=== PATIENT | male | born 1980 | race Caucasian/White ===

== ENCOUNTER 2025-01-20 08:27 | Emergency (ER) | payer SELFPAY ==
[2025-01-20 08:34] VITALS: BP 146/96; PULSE 90; RESP 20; TEMP 36.8; O2SAT 96; BMI 33.0
[2025-01-20 08:45] VITALS: BP 138/97; PULSE 90; O2SAT 97
[2025-01-20] MEDS: LACTATED RINGERS 1000ML 1,000 ML 999 ML IV (08:58)
[2025-01-20 09:00] VITALS: BP 125/86; PULSE 86; RESP 17; O2SAT 95
[2025-01-20 09:00] LABS: Hematocrit 44.1 % (42.0-52.0); Hemoglobin 15.2 g/dL (14.1-18.0); Immature Granulocytes % 0.6 %; Mean Corpuscular HGB Conc 34.5 g/dL (31.8-35.4); Mean Corpuscular Hemoglobin 30.5 pg (27.0-31.2); Mean Corpuscular Volume 88.6 fl (80-94); Nucleated Red Blood Cells % 0 %; Platelet Count 243 K/mm3 (142-424); Red Blood Count 4.98 M/mm3 (4.60-6.20); Red Cell Distribution Width-SD 41.0 fL; White Blood Count 8.3 K/mm3 (4.8-10.8)
[2025-01-20 09:05] LABS: Albumin Level 4.6 g/dl (3.5-5.0); Chloride 98 mmol/L (98-107)
[2025-01-20 09:06] LABS: Potassium 3.7 mmoL/L (3.5-5.1); Sodium 138 mmol/L (136-145)
[2025-01-20 09:08] LABS: Alanine Aminotransferase 64 U/L (12-78); Albumin/Globulin Ratio 1.8 (1.1-1.8); Alkaline Phosphatase 44 U/L (38-126); Anion Gap 14.7 mEq/L (5-15); Aspartate Amino Transferase 45 U/L (17-59); Bilirubin,Total 0.4 mg/dl (0.2-1.3); Blood Urea Nitrogen 10 mg/dl (9-20); Carbon Dioxide 29 mmol/L (22.0-30.0); Creatinine Clearance Estimated 158 mL/min (50-200); Creatinine,Serum 0.90 mg/dl (0.66-1.25); Estimated Glomerular Filt Rate 93 ml/min (>60); GFR (African American) 112 ML/MIN (>60); Globulin 2.5 g/dL (1.3-3.2); Lipase 132 U/L (23-300); Total Protein,Serum 7.1 g/dl (6.3-8.2)
[2025-01-20 09:09] LABS: Calcium 8.8 mg/dl (8.4-10.2); Glucose 108 mg/dl (74-100); Magnesium 1.8 mg/dl (1.6-2.3)
[2025-01-20 09:15] VITALS: BP 127/82; PULSE 87; RESP 19; O2SAT 95
--- NOTE | 2025-01-20 09:21 | ED_ITS ---
Discharge Plan Disposition Patient Disposition: Home, Self-Care Condition: Good Prescriptions Prescriptions: New ondansetron 4 mg tablet,disintegrating 4 mg PO Q8H PRN (Reason: nausea and vomiting) 4 Days Qty: 12 1RF tinidazole 500 mg tablet 2 g PO ONCE Qty: 4 0RF Referrals Follow up/Referrals: Abraham Velazquez II, MD [Staff Physician, Gastroenterology] - See instructions Lisandro Oneal MD [Primary Care Provider, Medical] - See instructions Activity Restrictions/Add. Instructions Additional Instructions/Restrictions: You were evaluated in the emergency department today. Your labs today are reassuring. Your stool panel is pending. I will follow-up and let you know once the results come back. Please last picker your prescription for Zofran and take as needed. Eat a bland diet and make sure you stay hydrated. Return to the emergency department right away for new or worsening symptoms such as high fevers, localizable abdominal pain, or other concerns. Please follow-up closely with your primary care provider. I also recommend follow-up with allergy/immunology given your symptoms. Clinical Impressions Clinical Impression: Nausea, vomiting and diarrhea Stand Alone Forms Stand Alone Forms: Work/School Release Instructions Patient Instructions: DI for Diarrhea and Traveler's Diarrhea -- Adult, DI for Acute Abdominal Pain, DI for Nausea -- Adult, DI for Vomiting -- Adult Print Language Print Language: Turkish Discharge ED Provider: Anna Escobedo General Adult HPI General Chief complaint: Abdominal Pain Stated complaint: Possible Gallbladder Time Seen by Provider: 01/20/25 08:38 Mode of Arrival: Ambulatory Source of Information: Patient Description of Symptoms (Recalled from ER Triage Doc. by RN): pt is here for generalized abd spasms that have been going on for awhile however early this morning he had worsening pain as well as n/v/d. has hx of hiatal hernia and gerd and takes daily pepcid 40 mg History of Present Illness HPI narrative: This patient is a 44-year-old male presenting to the emergency department for evaluation with concern for nausea, vomiting, diarrhea, and abdominal cramping. Patient initially started having diarrhea about 2 weeks ago with nonbloody nonmelanotic stools. He notes he is also had some issues with indigestion and pressure in his upper abdomen as well as generalized abdominal cramps. Last night around 2:00 in the morning, he started having nausea and vomiting. He notes that he had drank red Gatorade so the emesis was red. Aside from having the generalized abdominal cramping that feels like muscle spasms in his whole abdomen, he does not have any specific localizable pain. No fevers, chills, or urinary symptoms noted. He states that he was concerned that he could have alpha gal syndrome and that this could have been triggered by eating butter last night and previously by eating meat. He has never been tested or diagnosed with any alpha gal syndrome or tickborne diseases, but about a month ago he did found 3 ticks on himself [place]. He denies any other symptoms such as joint pains, body aches, rashes, tongue or throat swelling/tingling, difficulty breathing, or other concerns, but he thought that symptoms could have been minimized by the allergy medications that he is on for his chronic history of asthma. Otherwise, his only known allergy/intolerance is to corn, but he states he has not had corn in several days. He states usually he can tolerate corn with his allergy medications on board as long as it is cooked. No other new medications, travels, or recent exposures. No known sick contacts. Of note, he does have a history of hiatal hernia as well as bilateral inguinal hernia repair Related Data Previous Rx's ?Medication ?Instructions ?Recorded ondansetron 4 mg disintegrating 4 mg PO Q8H PRN nausea and 01/20/25 tablet vomiting 4 days #12 tabs tinidazole 500 mg tablet 2 g (4 x 500 mg) PO ONCE #4 tabs 01/20/25 Allergies Allergy/AdvReac Type Severity Reaction Status Date / Time corn Allergy Other Verified 01/20/25 08:50 [facility] Disclaimer: The information contained in this section may have been updated after the patient was seen, as this information can be updated by other users. Social History Smoking Status: Never smoker alcohol intake: never current occupational status: employed Travel in the last 8 weeks?: None ROS Obtained: Yes All systems reviewed & no additional complaints except as documented Physical Exam General General appearance: alert and in no apparent distress Head Head exam: atraumatic and normocephalic Eye Eye exam: Present normal appearance, PERRL and EOMI ENT ENT exam: Present normal exam, normal oropharynx, mucous membranes moist and normal external ear exam Neck Neck exam: Present normal inspection, full ROM and trachea midline; Absent tenderness Chest Chest inspection: Present normal inspection and symmetric chest wall rise; Absent tenderness Respiratory Respiratory exam: Present normal lung sounds bilaterally; Absent respiratory distress, wheezes, stridor or accessory muscle use Cardiovascular Cardiovascular exam: Present regular rate and normal rhythm Abdominal Exam Abdominal exam: Present soft; Absent distention, tenderness or guarding Extremities Exam Extremities exam: Present normal inspection, full ROM and normal capillary refill; Absent tenderness or edema Back Exam Back exam: Present normal inspection and full ROM; Absent tenderness Neurological Exam Neurological exam: Present alert, oriented X3, CN II-XII intact and normal gait; Absent motor sensory deficit Psychiatric Psychiatric exam: Present normal affect and normal mood Skin Skin exam: Present warm and dry Medical Decision Making Medical Records Medical records reviewed: Yes I reviewed the patient's medical records. Screening: Per USPSTF and CDC recommendations, given the prevalence of disease in our region, it is our hospital?s policy to screen for HIV and viral Hepatitis for all patients aged 18 and over and those with ongoing risk factors. Casimiro Inquiry Pt receiving controlled substance: No Vital Signs: 01/20/25 08:34 01/20/25 08:45 01/20/25 09:00 Temperature 98.2 F Temperature Source Oral Pulse Rate 90 86 Pulse Rate [Left Radial] 90 Respiratory Rate 20 17 Blood Pressure 138/97 H 125/86 Blood Pressure [Right Arm] 146/96 H Blood Pressure Mean 112 99 Blood Pressure Mean [Right Arm] 112 Blood Pressure Source Blood Pressure Position 02 Sat by Pulse Oximetry 96 97 95 Oxygen Delivery Method Room Air Room Air Room Air 01/20/25 09:15 01/20/25 09:30 01/20/25 10:10 Temperature 98.7 F Temperature Source Oral Pulse Rate 87 88 79 Pulse Rate [Left Radial] Respiratory Rate 19 19 19 Blood Pressure 127/82 126/81 125/79 Blood Pressure [Right Arm] Blood Pressure Mean 91 90 Blood Pressure Mean [Right Arm] Blood Pressure Source Automatic Cuff Blood Pressure Position Supine 02 Sat by Pulse Oximetry 95 95 Oxygen Delivery Method Room Air Room Air Room Air Lab Data Lab results reviewed: Yes I reviewed the patient's lab results. Lab Results 01/20/25 08:35: WBC 8.3, RBC 4.98, Hgb 15.2, Hct 44.1, MCV 88.6, MCH 30.5, MCHC 34.5, RDW 12.7, Plt Count 243, MPV 9.2, Neut % (Auto) 79.6, Lymph % (Auto) 10.9, [place] % (Auto) 8.0, Eos % (Auto) 0.7, Baso % (Auto) 0.2, Neut # (Auto) 6.6, Lymph # (Auto) 0.9, [place] # (Auto) 0.7, Eos # (Auto) 0.1, Baso # (Auto) 0.0, Sodium 138, Potassium 3.7, Chloride 98, Carbon Dioxide 29, Anion Gap 14.7, BUN 10, Creatinine 0.90, Estimated Creat Clear 158, Estimated GFR 93, Est GFR ( Amer) 112, Glucose 108 H, Calcium 8.8, Magnesium 1.8, Total Bilirubin 0.4, AST 45, ALT 64, Alkaline Phosphatase 44, Total Protein 7.1, Albumin 4.6, Globulin 2.5, Albumin/Globulin Ratio 1.8, Lipase 132, TSH 1.16, Thyroxine (T4) 10.4 01/20/25 09:50: Urine Color Yellow, Urine Appearance Clear, Urine pH 6.5, Ur Specific [place] <= 1.005, Urine Protein Negative, Urine Glucose (UA) Negative, Urine Ketones Negative, Urine Blood Negative, Urine Nitrate Negative, Urine Bilirubin Negative, Urine Urobilinogen 0.2, Ur Leukocyte Esterase Negative, Urine RBC None, Urine WBC None, Ur Squamous Epith Cells Occasional, Urine Bacteria Trace, Stl C. cayetanensis PCR Not detected, Stool Rotavirus (PCR) Not detected, Stl Adenov F 40/41 PCR Not detected, Stool Astrovirus (PCR) Not detected, Stool Campylobacter PCR Not detected, Stl C.difficile Tox PCR Not detected, Stool Cryptosporidium PCR Not detected, Stl E.coli Shiga Tox PCR Not detected, Stool E coli O157 PCR Not detected, Stl Enterotoxigenic E PCR Not detected, Stool EPEC (PCR) Not detected, Stool EAEC (PCR) Not detected, Stl E. histolytica PCR Not detected, Stool Giardia Lamblia PCR Detected A, Stool Salmonella PCR Not detected, Stool Sapovirus (PCR) Not detected, Stl P. shigelloides PCR Not detected, Stl Shigella/EIEC PCR Not detected, St Y.enterocolitica PCR Not detected, Stool Vibrio (PCR) Not detected, Stl Vibrio cholerae PCR Not detected, Stl Norovirus GI/GII PCR Not detected 01/20/25 08:35 01/20/25 08:35 Orders (Tests/Meds): ED MEDICATIONS Discontinued Medications Generic Name Dose Route Start Last Admin Trade Name Freq PRN Reason Stop Dose Admin Lactated Ringer's 1,000 mls @ 999 mls/hr 01/20/25 08:49 01/20/25 08:58 Lactated Ringer's 1000 Ml Bag IV 01/20/25 09:49 999 mls/hr .Q1H1M ONE Administration ORDERS Category Date Time Status Complete Blood Count Auto Diff Stat Lab 01/20/25 08:35 Completed Comprehensive Metabolic Panel Stat Lab 01/20/25 08:35 Completed Diarrhea 23 Panel, PCR Stat Lab 01/20/25 09:50 Completed Lipase Stat Lab 01/20/25 08:35 Completed MAG [Magnesium] Stat Lab 01/20/25 08:35 Completed T4 (Thyroxine) Stat Lab 01/20/25 08:35 Completed TSH [Thyroid Stimulating Hormone] Stat Lab 01/20/25 08:35 Completed UA [Urinalysis and Microscopic] Stat Lab 01/20/25 09:50 Completed Medical Decision Narrative: In summary, this patient is a 44-year-old male presenting to the Emergency Department for evaluation of nausea, vomiting, diarrhea, and abdominal cramping. Differential diagnoses considered include but are not limited to bacterial gastroenteritis, viral gastroenteritis, parasitic infection, alpha gal syndrome, colitis, cholecystitis, pancreatitis, IBS, IBD, dehydration, PAULA among others. Ruling out the most morbid conditions drove assessment. It should be noted patient's history includes asthma and hiatal hernia with GERD which may or may not be at goal therapy. This complicates all aspects of care by increasing patient's risk for morbidity. On exam, the patient is well-appearing sitting upright in no acute distress. He has no localizable abdominal tenderness to suggest acute surgical intra- abdominal pathology. Vitals are normal on cardiac telemetry, and he is afebrile and nontoxic-appearing. Workup included CBC, CMP, lipase, magnesium, TSH, T4, urinalysis, diarrhea panel. He was given a bolus of IV fluids. Labs were obtained that demonstrated reassuring CBC with no significant leukocytosis or anemia, reassuring chemistry with normal electrolytes, normal kidney function, normal thyroid studies. Urinalysis is reassuring with no concerns for infection. Diarrhea panel was collected and was pending at time of discharge.. On reassessment, patient had good improvement after administration of fluids. Abdominal exam remains benign. Ultimately, I feel he likely has infectious gastroenteritis and is appropriate for discharge with instructions for supportive care with diarrhea panel pending. I prescribed Zofran for symptomatic improvement. Stool panel resulted after discharge and was positive for Giardia, for which are prescribed tinidazole. He was given instructions for supportive care and strict return precautions. Critical Care Critical Care Time Critical Care Time: No
[2025-01-20 09:26] LABS: T4 (Thyroxine) 10.4 ug/dl (5.53-11.0)
[2025-01-20 09:30] VITALS: BP 126/81; PULSE 88; RESP 19; O2SAT 95
[2025-01-20 09:40] LABS: Thyroid Stimulating Hormone 1.16 uIU/mL (0.465-4.68)
[2025-01-20 09:58] LABS: Adenovirus F 40/41, stool Not Detected (NotDetected); Clostridium Difficile A/B, PCR Not Detected (NotDetected); Cyclospora Cayetanesis Not Detected (NotDetected); Microscopic, Urine URINE MICROSCOPIC (MICROSCOPIC); Plesimonas Shigalloides, PCR Not Detected (NotDetected); Salmonella, PCR Not Detected (NotDetected); Shiga-like toxin E coli Not Detected (NotDetected); Shigella Enterovasive E coli Not Detected (NotDetected); Vibrio, PCR Not Detected (NotDetected); Yersinia Entercolitica, PCR Not Detected (NotDetected)
[2025-01-20 09:59] LABS: Bilirubin,Urine Negative (Negative); Color,Urine YELLOW (Yellow); Glucose,Urine (UA) Negative (Negative); Ketones,Urine Negative (Negative); Leukocyte Esterase,Urine Negative (Negative); PH,Urine 6.5 (5.0-8.5); Protein,Urine Negative (Negative); Specific Gravity, Urine <= 1.005 (1.005-1.030); Urobilinogen,Urine 0.2 EU/dl (0.2)
[2025-01-20 10:09] LABS: Bacteria,Urine Trace /lpf; Squamous Epithelial Cell,Urine Occasional #/hpf (0-5)
[2025-01-20 10:10] VITALS: BP 125/79; PULSE 79; RESP 19; TEMP 37.1; O2SAT 98
--- NOTE | 2025-01-20 12:02 | PC.NURSE ---
Dr. Escobedo notified of results of stool panel- positive for Giardia.
[2025-01-23 14:53] LABS: Calprotectin, Fecal 1440 ug/g (0-120)
== END 2025-01-20 10:11 | disposition home or self-care (01) ==
PROVIDERS: Emergency Provider Emergency Medicine; PCP Family Medicine
DX: R10.84 Generalized abdominal pain (principal); R11.2 Nausea with vomiting, unspecified; R19.7 Diarrhea, unspecified
CPT/HCPCS: 80053; 81001; 83690; 83735; 83993; 84436; 84443; 85025; 87507; 96360; 99284; J7120